=== PATIENT | female | born 1935 | race Caucasian/White ===

== ENCOUNTER → 2016-08-25 | Outpatient (CLI) | payer MEDICARE, OTHER ==
[~2016-08-25] MED LIST: ANTI1CAP PO; CALC-699 PO; CHOL200047 PO; LACT1CAP73 PO; WARF5TAB6 PO; WARF5TAB76 PO
[2016-08-25 11:20] LABS: BASOPHILS % (AUTO) 0.7 % (0-2); HGB - HEMOGLOBIN 12.2 GM/DL (12-16); LYMPHOCYTES # (AUTO) 0.4 T/MM3 (1-4.8); LYMPHOCYTES % (AUTO) 14.6 % (23-45); MEAN CORPUSCULAR HGB 31.4 UUG (26-34); MEAN CORPUSCULAR HGB CONC(MCHC 32.1 GM/DL (31-37); MEAN CORPUSCULAR VOLUME 97.7 UM3 (80-100); MEAN PLATELET VOLUME 11.1 UM3 (9.4-12.4); MONOCYTES # (AUTO) 0.2 T/MM3 (0-0.8); MONOCYTES % (AUTO) 8.1 % (0-9.0); NEUTROPHILS #(AUTO)-ABSOLUTE 2.2 T/MM3 (1.8-7.7); NEUTROPHILS % (AUTO) 75.6 % (33-66); RED BLOOD COUNT 3.89 M/MM3 (4.00-5.20)
[2016-08-25 11:32] LABS: ALBUMIN 3.8 G/DL (3.5-5.0); ALBUMIN/GLOBULIN RATIO 1.2 RATIO (1.1-2.2); ALKALINE PHOSPHATASE 78 U/L (38-126); ALT (SGPT) 26 U/L (9-52); ANION GAP 12 MEQ/L (5-15); AST (SGOT) 23 U/L (14-36); BUN/CREATININE RATIO 30 RATIO (6-26); CALCIUM 9.2 MG/DL (8.4-10.2); CHLORIDE 105 MEQ/L (98-107); CO2 - CARBON DIOXIDE 29 MEQ/L (22-30); CREATININE 1.2 MG/DL (0.7-1.2); GLOMERULAR FILTRATION RATE 43; GLUCOSE 84 MG/DL (65-110); LDH 456 U/L (313-618); MAGNESIUM 2.1 MG/DL (1.6-2.3); POTASSIUM 4.5 MEQ/L (3.6-5); SODIUM 146 MEQ/L (134-144); TOTAL PROTEIN 6.9 G/DL (6.3-8.2)
--- NOTE | 2016-08-25 11:40 | DI ---
INDICATION: ITS.REASON: C34.12 Malignant neoplasm of upper lobe, left bronchus or lung PROCEDURE: CHEST 2-VIEWS UPRIGHT (PA \T\ LAT) Encounter: Subsequent COMPARISON: Chest CT dated July 17, 2016 and chest x-ray dated June 18, 2016 FINDINGS: The lungs are stable without new consolidation or mass. There is no pleural effusion or pneumothorax. The heart size, mediastinal contours and pulmonary vascularity are unchanged. Thoracic spine fusion hardware. IMPRESSION: Stable chest without acute cardiopulmonary disease. .
== END ==
LOC: IMA 10:51
PROVIDERS: ATTEND Internal Medicine Hematology & Oncology
DX: C34.12 Malignant neoplasm of upper lobe, left bronchus or lung (principal)
CPT/HCPCS: 36415; 80053; 82378; 83615; 83735; 85025

== ENCOUNTER → 2016-09-18 | Outpatient (CLI) | payer MEDICARE, OTHER ==
[~2016-09-18] MED LIST changes: +SALINE FLUSH 10ml SYRINGE ONE
[2016-09-18 09:40] LABS: BASOPHILS % (AUTO) 0.3 % (0-2); EOSINOPHILS # (AUTO) 0.1 T/MM3 (0-0.5); EOSINOPHILS % (AUTO) 1.4 % (0-4); HCT - HEMATOCRIT 38.5 % (36-46); HGB - HEMOGLOBIN 12.5 GM/DL (12-16); LYMPHOCYTES # (AUTO) 0.5 T/MM3 (1-4.8); LYMPHOCYTES % (AUTO) 13.8 % (23-45); MEAN CORPUSCULAR HGB 31.5 UUG (26-34); MEAN CORPUSCULAR HGB CONC(MCHC 32.5 GM/DL (31-37); MEAN PLATELET VOLUME 10.6 UM3 (9.4-12.4); MONOCYTES # (AUTO) 0.2 T/MM3 (0-0.8); MONOCYTES % (AUTO) 5.3 % (0-9.0); NEUTROPHILS #(AUTO)-ABSOLUTE 2.8 T/MM3 (1.8-7.7); NEUTROPHILS % (AUTO) 79.2 % (33-66); RED BLOOD COUNT 3.97 M/MM3 (4.00-5.20); WBC - WHITE BLOOD COUNT 3.6 T/MM3 (4.5-11.0)
[2016-09-18 09:49] LABS: ALBUMIN 4.2 G/DL (3.5-5.0); ALBUMIN/GLOBULIN RATIO 1.3 RATIO (1.1-2.2); ALKALINE PHOSPHATASE 99 U/L (38-126); ALT (SGPT) 43 U/L (9-52); ANION GAP 11 MEQ/L (5-15); AST (SGOT) 30 U/L (14-36); BUN/CREATININE RATIO 27 RATIO (6-26); CALCIUM 9.3 MG/DL (8.4-10.2); CHLORIDE 105 MEQ/L (98-107); CO2 - CARBON DIOXIDE 30 MEQ/L (22-30); CREATININE 1.1 MG/DL (0.7-1.2); GLOMERULAR FILTRATION RATE 48; GLUCOSE 94 MG/DL (65-110); LDH 433 U/L (313-618); POTASSIUM 4.4 MEQ/L (3.6-5); SODIUM 146 MEQ/L (134-144); TOTAL PROTEIN 7.5 G/DL (6.3-8.2)
--- NOTE | 2016-09-18 13:23 | DI ---
Indication: ITS.REASON: C34.12 LEFT LUNG CA; C79.51 BONE CA; M54.[address] CHEST/ABDOMEN/PELVIS W/O: Comparison: 04/22/2016 CT PET fusion evaluation Technique: Patient scanned from above the thoracic inlet to below the diaphragms for the chest component of the examination and then from above the diaphragm to below the symphysis for the abdomen pelvic component. Patient was not given intravenous contrast. Dose reduction imaging technology is utilized. Reformatted sagittal and coronal images are provided for both the chest and abdomen and pelvis. CT chest Findings: Degenerative changes identified in the lower cervical spine. Patient shows soft tissue density in the anterior aspect of the left pulmonary apex. Consistent with the history of prior partial pneumonectomy. Mild chronic changes are seen without any dominant masses or consolidations in either lung. No pathologic adenopathy is identified. Findings seem similar to prior study. Patient shows prior stabilization in the spine with posterior stabilization hardware at T10-T12 stabilizing a lytic lesion at T11. Patient also shows a stable appearance to the sclerotic area in the right humerus. CT abdomen pelvis Patient demonstrates prior surgical absence of the gallbladder. The liver was homogeneous in texture. Spleen is unremarkable. Pancreas seems normal. Adrenal gland showed no obvious abnormalities. Kidneys showed no acute findings. Patient shows no dilation of the ureters. Bladder contour is unremarkable. No pathologic adenopathy identified in the pelvis. Degenerative changes are present in the spine with about a 25% compression of the superior aspect of L1 Impression: 1. Postoperative changes involving the left lung without acute new findings. 2. Similar lytic lesion in the T11 vertebral body stabilized with posterior hardware. 3. No acute findings involving the kidneys or bowel. .
--- NOTE | 2016-09-18 16:40 | DI ---
Indication: ITS.REASON: C34.12 LEFT LUNG CA; C79.51 BONE CA; M54.5 LOW BACK PAIN NM BONE SCAN, WHOLE BODY: Comparison: 04/10/2016 and 07/17/2016 Technique: Patient was injected with 27.4 mCi technetium 99 MDP and after the appropriate waiting time total body gamma camera images as well as regional views are provided. Findings: Since patient's prior study there are now new compression deformities within the thoracic spine. The L1 vertebral body shows a new compression deformity and there is similar activity at T11 with mild activity at T10 and T12. No additional new abnormal activity seen. Impression: Since the prior study patient showed suggestion of a new compression fracture at L1. Activity at T11 and mild activity at T10 and T12 were similar. .
== END ==
LOC: IMA 09:00
PROVIDERS: ATTEND Nurse Practitioner
DX: C34.12 Malignant neoplasm of upper lobe, left bronchus or lung (principal); C79.51 Secondary malignant neoplasm of bone; M54.5 Low back pain; M43.8X4 Other specified deforming dorsopathies, thoracic region; M47.896 Other spondylosis, lumbar region
CPT/HCPCS: 71250; 74176; 78306; 80053; 82378; 83615; 83735; 85025; A9503

== ENCOUNTER → 2016-09-23 | Outpatient (CLI) | payer MEDICARE, OTHER ==
[~2016-09-23] MED LIST changes: +GADOBUTROL 10mMol/10ml INJECTION IV ONE
--- NOTE | 2016-09-23 09:45 | DI ---
Indication: ITS.REASON: C34.12 LUNG CA; C79.51 ELEVATED CEA PROCEDURE: MRI LUMBAR SPINE W/WO CONTRAST: Encounter: Initial Comparison: Bone scan and CT chest, abdomen and pelvis dated September 18, 2016 Technique: Multiplanar multisequence MR imaging of the lumbar spine was performed with and without contrast. Contrast: 6 mL Gadavist Findings: There is a new moderate superior endplate compression fracture of L1 with acute edema within the vertebral body. No significant retropulsion or central canal narrowing. Spinal fixation hardware redemonstrated within the T12 vertebra. Enhancing metastatic lesion within the T11 vertebra appears stable in overall size. There are smaller enhancing metastases seen within the L2 and L3 vertebrae. The L2 lesion seen on sagittal postcontrast image six measures 1.2 cm in diameter. The L3 lesion on sagittal image #8 measures 0.9 cm in maximal diameter. No additional acute fractures seen. The paraspinal soft tissues show no acute findings. Segmental analysis: T12-L1: No focal disk herniation, central canal or neural foraminal stenosis. L1-L2: No focal disk herniation, central canal or neural foraminal stenosis. L2-L3: Degenerative facet disease contributing to mild central canal narrowing. No focal disk herniation. Moderate bony neural foraminal stenosis on the right. No left foraminal narrowing. L3-L4: Degenerative facet disease with mild listhesis with mild central canal stenosis. Mild mild bilateral neural foraminal stenosis. L4-L5: Degenerative facet hypertrophy contributing to mild central canal narrowing. Mild left neural foraminal stenosis. No significant right foraminal narrowing. L5-S1: Degenerative facet disease. No focal disk herniation, central canal or neural foraminal stenosis. Impression: 1. Acute superior endplate compression fracture of L1. 2. 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 .
--- NOTE | 2016-09-23 10:56 | DI ---
Indication: ITS.REASON: C34.12 LUNG CA; C79.51 ELEVATED CEA PROCEDURE: PET/CT SKULL TO THIGH SUBSEQUE: Encounter: Subsequent dated September 18, 2016 and MRI lumbar spine from today Technique: 16.9 mCi of F-18 FDG was administered intravenously via the left antecubital fossa. Approximately 60 minutes later 3D PET/CT imaging was performed from the skull base through the mid thighs. The CT images are for attenuation correction purposes only. Findings: No areas of abnormal uptake seen within the skull base or neck. Artifact from prior dental restorations. No metabolically active pulmonary nodules or masses. Focal metastasis in the T11 vertebra is again noted with an SUV max of 6.8. Spinal fusion hardware causing some artifact. There is uptake within the L1 compression fracture noted on today's MRI study.. The small enhancing metastatic lesions seen in the L2 and L3 vertebra do not show obvious increased FDG uptake. There is uptake in the L5 vertebra that could be degenerative. No abnormal metabolically active masses seen within the liver. Expected genitourinary and bowel uptake. Impression: No new FDG avid metastatic disease. The enhancing foci seen in the L2 and L3 vertebra by MRI do not show definite increased FDG uptake. .
== END ==
LOC: IMA 07:18
PROVIDERS: ATTEND Internal Medicine Hematology & Oncology
DX: C34.12 Malignant neoplasm of upper lobe, left bronchus or lung (principal); C79.51 Secondary malignant neoplasm of bone; M48.56XA Collapsed vertebra, not elsewhere classified, lumbar region, initial encounter for fracture; Z98.1 Arthrodesis status
CPT/HCPCS: 72158; 78815; A9552; A9585